=== PATIENT | female | born 1985 | race Caucasian/White ===

== ENCOUNTER 2023-07-14 16:39 | Emergency (ER) | payer BC, SELFPAY ==
[2023-07-14 17:07] VITALS: BP 132/82; PULSE 129; RESP 20; TEMP 39.6; O2SAT 98; BMI 28.5
[2023-07-14 17:26] VITALS: TEMP 39.6
[2023-07-14] MEDS: ACETAMINOPHEN 325 MG TABLET 650 MG PO (17:26)
--- NOTE | 2023-07-14 17:39 | ED_ITS ---
HPI - URI/Sore Throat <Kellie Garcia PA-C - Last Filed: 07/14/23 19:31> General Chief Complaint: Upper Respiratory Symptoms Stated Complaint: Strep throat/temp above 102 Time Seen by Provider: 07/14/23 17:03 Source: patient and family Mode of arrival: Ambulatory History of Present Illness HPI Narrative: 37-year-old female comes for evaluation of severe sore throat. Symptoms started 3 days ago accompanied by fever and minimal cough. She is having trouble swallowing her spit. She has a 2-year-old home and had a new baby 2 months ago. Both her kids are fine at the moment. She denies chest pain shortness of breath abdominal pain. She is otherwise healthy without chronic conditions. She called for a phone visit from her provider and was prescribed amoxicillin 500 mg for which she is taken 1 dose. Related Data Allergies Allergy/AdvReac Type Severity Reaction Status Date / Time No Known Drug Allergies Allergy Verified 07/14/23 17:07 Review of Systems <Kellie Garcia PA-C - Last Filed: 07/14/23 19:31> Review of Systems ROS Unobtainable: All systems reviewed & are unremarkable except as noted in HPI and below Patient History <Kellie Garcia PA-C - Last Filed: 07/14/23 19:31> Social History Smoking Status: Never smoker Smoking Status: Never smoker alcohol intake frequency: holidays/special occasions only Substance Use Type: does not use Exam <Kellie Garcia PA-C - Last Filed: 07/14/23 19:31> Narrative Exam Narrative: GENERAL: 37 year old patient appears stated age. Appears uncomfortable. HEAD: Atraumatic. Normocephalic. EYES: Pupils equal round and reactive. Extraocular motions intact. No scleral icterus. No injection or drainage. ENT: Nose without bleeding, purulent drainage. Throat with moderate erythema, no tonsillar hypertrophy or exudate. TM's pearly bilarterally. NECK: Trachea midline. Non tender, no LAD CARDIOVASCULAR: Regular rate and rhythm without murmurs, gallops, or rubs. RESPIRATORY: Clear to auscultation. Breath sounds equal bilaterally. No wheezes, rales, or rhonchi. GASTROINTESTINAL: Abdomen soft, non-tender, nondistended. NEURO: AOx3. SKIN: No rash or erythema of visible areas Initial Vital Signs Initial Vital Signs: Vital Signs Temperature 103.3 F H 07/14/23 17:07 Pulse Rate 129 H 07/14/23 17:07 Respiratory Rate 20 07/14/23 17:07 Blood Pressure 132/82 07/14/23 17:07 Pulse Oximetry 98 07/14/23 17:07 Oxygen Delivery Method Room Air 07/14/23 17:07 <Olvin Lee DO - Last Filed: 07/14/23 20:33> Initial Vital Signs Initial Vital Signs: Vital Signs Temperature 103.3 F H 07/14/23 17:07 Pulse Rate 129 H 07/14/23 17:07 Respiratory Rate 20 07/14/23 17:07 Blood Pressure 132/82 07/14/23 17:07 Pulse Oximetry 98 07/14/23 17:07 Oxygen Delivery Method Room Air 07/14/23 17:07 <Abbie Rooney MD - Last Filed: 07/16/23 19:44> Initial Vital Signs Initial Vital Signs: Vital Signs Temperature 103.3 F H 07/14/23 17:07 Pulse Rate 129 H 07/14/23 17:07 Respiratory Rate 20 07/14/23 17:07 Blood Pressure 132/82 07/14/23 17:07 Pulse Oximetry 98 07/14/23 17:07 Oxygen Delivery Method Room Air 07/14/23 17:07 Course <Kellie Garcia PA-C - Last Filed: 07/14/23 19:31> Orders Ordered: Discontinued Medications Acetaminophen (Acetaminophen 325 Mg Tablet) 650 mg PO NOW ONE Stop: 07/14/23 17:20 Last Admin: 07/14/23 17:26 Dose: 650 mg Documented By: ES Sodium Chloride (Normal Saline 0.9%) 1,000 mls @ 1,000 mls/hr IV BOLUS ONE Stop: 07/14/23 18:52 Last Admin: 07/14/23 19:22 Dose: 1,000 mls/hr Documented By: ES Lidocaine HCl (Lidocaine Viscous 2% 15 Ml Solution) 15 ml PO NOW ONE Stop: 07/14/23 17:39 Last Admin: 07/14/23 17:52 Dose: 15 ml Documented By: ES Methylprednisolone (Methylprednisolone 125 Mg/2 Ml Vial) 60 mg IV NOW ONE Stop: 07/14/23 17:54 Last Admin: 07/14/23 19:22 Dose: 60 mg Documented By: RICKY Oxycodone/Acetaminophen (Oxycodone/Acetaminophen 5/325 Tablet) 1 tab PO NOW ONE Stop: 07/14/23 17:39 Last Admin: 07/14/23 17:48 Dose: 1 tab Documented By: RICKY Penicillin G Benzathine (Penicillin G Benzathine 1,200,000 Unit/2 Ml Syringe) 1,200,000 unit IM NOW ONE Stop: 07/14/23 20:32 Last Admin: 07/14/23 20:46 Dose: 1,200,000 unit Documented By: GEORGIE Vital Signs Vital signs: Vital Signs - 8 hr 07/14/23 17:07 07/14/23 17:26 07/14/23 19:29 Temperature 103.3 F H 103.3 F H 98 F Pulse Rate 129 H 120 H Respiratory Rate 20 18 Blood Pressure 132/82 121/81 Pulse Oximetry 98 98 Oxygen Delivery Method Room Air Room Air 07/14/23 20:29 Temperature Pulse Rate 118 H Respiratory Rate 18 Blood Pressure 122/88 Pulse Oximetry 98 Oxygen Delivery Method Room Air <Olvin Lee, - Last Filed: 07/14/23 20:33> Orders Ordered: Discontinued Medications Acetaminophen (Acetaminophen 325 Mg Tablet) 650 mg PO NOW ONE Stop: 07/14/23 17:20 Last Admin: 07/14/23 17:26 Dose: 650 mg Documented By: RICKY Sodium Chloride (Normal Saline 0.9%) 1,000 mls @ 1,000 mls/hr IV BOLUS ONE Stop: 07/14/23 18:52 Last Admin: 07/14/23 19:22 Dose: 1,000 mls/hr Documented By: RICKY Lidocaine HCl (Lidocaine Viscous 2% 15 Ml Solution) 15 ml PO NOW ONE Stop: 07/14/23 17:39 Last Admin: 07/14/23 17:52 Dose: 15 ml Documented By: RICKY Methylprednisolone (Methylprednisolone 125 Mg/2 Ml Vial) 60 mg IV NOW ONE Stop: 07/14/23 17:54 Last Admin: 07/14/23 19:22 Dose: 60 mg Documented By: RICKY Oxycodone/Acetaminophen (Oxycodone/Acetaminophen 5/325 Tablet) 1 tab PO NOW ONE Stop: 07/14/23 17:39 Last Admin: 07/14/23 17:48 Dose: 1 tab Documented By: RICKY Penicillin G Benzathine (Penicillin G Benzathine 1,200,000 Unit/2 Ml Syringe) 1,200,000 unit IM NOW ONE Stop: 07/14/23 20:32 Last Admin: 07/14/23 20:46 Dose: 1,200,000 unit Documented By: GEORGIE Vital Signs Vital signs: Vital Signs - 8 hr 07/14/23 17:07 07/14/23 17:26 07/14/23 19:29 Temperature 103.3 F H 103.3 F H 98 F Pulse Rate 129 H 120 H Respiratory Rate 20 18 Blood Pressure 132/82 121/81 Pulse Oximetry 98 98 Oxygen Delivery Method Room Air Room Air 07/14/23 20:29 Temperature Pulse Rate 118 H Respiratory Rate 18 Blood Pressure 122/88 Pulse Oximetry 98 Oxygen Delivery Method Room Air <Abbie Rooney MD - Last Filed: 07/16/23 19:44> Orders Ordered: Discontinued Medications Acetaminophen (Acetaminophen 325 Mg Tablet) 650 mg PO NOW ONE Stop: 07/14/23 17:20 Last Admin: 07/14/23 17:26 Dose: 650 mg Documented By: RICKY Sodium Chloride (Normal Saline 0.9%) 1,000 mls @ 1,000 mls/hr IV BOLUS ONE Stop: 07/14/23 18:52 Last Admin: 07/14/23 19:22 Dose: 1,000 mls/hr Documented By: RICKY Lidocaine HCl (Lidocaine Viscous 2% 15 Ml Solution) 15 ml PO NOW ONE Stop: 07/14/23 17:39 Last Admin: 07/14/23 17:52 Dose: 15 ml Documented By: RICKY Methylprednisolone (Methylprednisolone 125 Mg/2 Ml Vial) 60 mg IV NOW ONE Stop: 07/14/23 17:54 Last Admin: 07/14/23 19:22 Dose: 60 mg Documented By: RICKY Oxycodone/Acetaminophen (Oxycodone/Acetaminophen 5/325 Tablet) 1 tab PO NOW ONE Stop: 07/14/23 17:39 Last Admin: 07/14/23 17:48 Dose: 1 tab Documented By: RICKY Penicillin G Benzathine (Penicillin G Benzathine 1,200,000 Unit/2 Ml Syringe) 1,200,000 unit IM NOW ONE Stop: 07/14/23 20:32 Last Admin: 07/14/23 20:46 Dose: 1,200,000 unit Documented By: GEORGIE Vital Signs Vital signs: Vital Signs - 8 hr 07/14/23 17:07 07/14/23 17:26 07/14/23 19:29 Temperature 103.3 F H 103.3 F H 98 F Pulse Rate 129 H 120 H Respiratory Rate 20 18 Blood Pressure 132/82 121/81 Pulse Oximetry 98 98 Oxygen Delivery Method Room Air Room Air 07/14/23 20:29 Temperature Pulse Rate 118 H Respiratory Rate 18 Blood Pressure 122/88 Pulse Oximetry 98 Oxygen Delivery Method Room Air MDM - URI/Sore Throat <Kellie Garcia PA-C - Last Filed: 07/14/23 19:31> Differential Diagnosis Differential diagnosis: Likely upper respiratory infection, viral infection, influenza, pharyngitis and other (Strep throat, covid) Lab Data Lab results narrative: Throat swab positive for group a strep 07/14/23 18:35 07/14/23 18:35 Labs: Lab Results 07/14/23 07/14/23 Range/Units 17:18 18:35 WBC 15.6 H (4.5-11.0) X10^3/uL RBC 4.23 (4.0-5.2) X10^6/uL Hgb 13.1 (12.0-16.0) g/dL Hct 38.5 (36-46) % MCV 91.2 (80-100) fL MCH 31.0 (26-34) PG MCHC 34.0 (30-36) % RDW 13.5 (11.6-14.8) % Plt Count 206 (150-400) X10^3/uL Neut % (Auto) 86.3 H (50-75) % Lymph % (Auto) 6.0 L (25-40) % [place] % (Auto) 7.1 (3-14) % Eos % (Auto) 0.1 L (2-4) % Baso % (Auto) 0.5 (0-2) % Neut # (Auto) 28187 H (0134-1618) /uL Lymph # (Auto) 900 L (2532-5293) /uL [place] # (Auto) 1100 H (0-900) /uL Eos # (Auto) 0 (0-450) /uL Baso # (Auto) 100 (0-100) /uL Sodium 136 L (137-145) mmol/L Potassium 3.5 (3.4-5.1) mmol/L Chloride 105 (98-107) mmol/L Carbon Dioxide 18 L (22-32) mmol/L BUN 11 (7-17) mg/dL Creatinine 0.69 (0.52-1.04) mg/dL Estimated GFR > 60 (>60) mL/min BUN/Creatinine Ratio 15.9 (6-22) Glucose 107 H (70-100) mg/dL Lactate 0.8 (0.7-2.1) mmol/L Calcium 9.7 (8.4-10.2) mg/dL Total Bilirubin 2.1 H (0.2-1.3) mg/dL AST 60 H (14-36) IU/L ALT 160 H (<35) IU/L Alkaline Phosphatase 153 H (38-126) U/L Total Protein 8.1 (6.3-8.2) g/dL Albumin 4.4 (3.5-5.0) g/dL Globulin 3.7 (1.7-4.1) g/dL Albumin/Globulin Ratio 1.2 (1.0-2.8) Procalcitonin 0.13 (<0.5) ng/mL Group A Strep (PCR) Positive H (Negative) MDM Narrative Medical decision making narrative: History physical and confirmation of strep infection. Has good support and already has a prescription for amoxicillin given to her today by phone consult. Given her high pulse after discussion with we decided it would be prudent to draw some blood and give her some fluid is well as a single 60 mg dose of IV Solu-Medrol. Her WBC is 15.6, lactate 0.8, total bili 2.1, AST 60, ALT 160, alk-phos 153. After 2 hours and pain medication patient was quite comfortable. She will receive 1 L normal saline IV as well. <Olvin Lee DO - Last Filed: 07/14/23 20:33> Lab Data Labs: Lab Results 07/14/23 07/14/23 Range/Units 17:18 18:35 WBC 15.6 H (4.5-11.0) X10^3/uL RBC 4.23 (4.0-5.2) X10^6/uL Hgb 13.1 (12.0-16.0) g/dL Hct 38.5 (36-46) % MCV 91.2 (80-100) fL MCH 31.0 (26-34) PG MCHC 34.0 (30-36) % RDW 13.5 (11.6-14.8) % Plt Count 206 (150-400) X10^3/uL Neut % (Auto) 86.3 H (50-75) % Lymph % (Auto) 6.0 L (25-40) % [place] % (Auto) 7.1 (3-14) % Eos % (Auto) 0.1 L (2-4) % Baso % (Auto) 0.5 (0-2) % Neut # (Auto) 89236 H (4705-0926) /uL Lymph # (Auto) 900 L (4142-0340) /uL [place] # (Auto) 1100 H (0-900) /uL Eos # (Auto) 0 (0-450) /uL Baso # (Auto) 100 (0-100) /uL Sodium 136 L (137-145) mmol/L Potassium 3.5 (3.4-5.1) mmol/L Chloride 105 (98-107) mmol/L Carbon Dioxide 18 L (22-32) mmol/L BUN 11 (7-17) mg/dL Creatinine 0.69 (0.52-1.04) mg/dL Estimated GFR > 60 (>60) mL/min BUN/Creatinine Ratio 15.9 (6-22) Glucose 107 H (70-100) mg/dL Lactate 0.8 (0.7-2.1) mmol/L Calcium 9.7 (8.4-10.2) mg/dL Total Bilirubin 2.1 H (0.2-1.3) mg/dL AST 60 H (14-36) IU/L ALT 160 H (<35) IU/L Alkaline Phosphatase 153 H (38-126) U/L Total Protein 8.1 (6.3-8.2) g/dL Albumin 4.4 (3.5-5.0) g/dL Globulin 3.7 (1.7-4.1) g/dL Albumin/Globulin Ratio 1.2 (1.0-2.8) Procalcitonin 0.13 (<0.5) ng/mL Group A Strep (PCR) Positive H (Negative) MDM Narrative Medical decision making narrative: History physical and confirmation of strep infection. Has good support and already has a prescription for amoxicillin given to her today by phone consult. Given her high pulse after discussion with we decided it would be prudent to draw some blood and give her some fluid is well as a single 60 mg dose of IV Solu-Medrol. Her WBC is 15.6, lactate 0.8, total bili 2.1, AST 60, ALT 160, alk-phos 153. After 2 hours and pain medication patient was quite comfortable. She will receive 1 L normal saline IV as well. Dr Lee: Patient is well-appearing. Tolerating oral intake. Is still slightly tachycardic but I suspect that this is because of her infection. No respiratory distress. She is had 1 dose of amoxicillin. She is strep A positive today. I offered her a Bicillin injection instead of the oral antibiotics which she states she would like to do. She was given that here in the ER. Will discharge patient home with return precautions. She expressed understanding and agreement. <Abbie Rooney MD - Last Filed: 07/16/23 19:44> Lab Data Labs: Lab Results 07/14/23 07/14/23 Range/Units 17:18 18:35 WBC 15.6 H (4.5-11.0) X10^3/uL RBC 4.23 (4.0-5.2) X10^6/uL Hgb 13.1 (12.0-16.0) g/dL Hct 38.5 (36-46) % MCV 91.2 (80-100) fL MCH 31.0 (26-34) PG MCHC 34.0 (30-36) % RDW 13.5 (11.6-14.8) % Plt Count 206 (150-400) X10^3/uL Neut % (Auto) 86.3 H (50-75) % Lymph % (Auto) 6.0 L (25-40) % [place] % (Auto) 7.1 (3-14) % Eos % (Auto) 0.1 L (2-4) % Baso % (Auto) 0.5 (0-2) % Neut # (Auto) 84014 H (7059-3194) /uL Lymph # (Auto) 900 L (1371-5929) /uL [place] # (Auto) 1100 H (0-900) /uL Eos # (Auto) 0 (0-450) /uL Baso # (Auto) 100 (0-100) /uL Sodium 136 L (137-145) mmol/L Potassium 3.5 (3.4-5.1) mmol/L Chloride 105 (98-107) mmol/L Carbon Dioxide 18 L (22-32) mmol/L BUN 11 (7-17) mg/dL Creatinine 0.69 (0.52-1.04) mg/dL Estimated GFR > 60 (>60) mL/min BUN/Creatinine Ratio 15.9 (6-22) Glucose 107 H (70-100) mg/dL Lactate 0.8 (0.7-2.1) mmol/L Calcium 9.7 (8.4-10.2) mg/dL Total Bilirubin 2.1 H (0.2-1.3) mg/dL AST 60 H (14-36) IU/L ALT 160 H (<35) IU/L Alkaline Phosphatase 153 H (38-126) U/L Total Protein 8.1 (6.3-8.2) g/dL Albumin 4.4 (3.5-5.0) g/dL Globulin 3.7 (1.7-4.1) g/dL Albumin/Globulin Ratio 1.2 (1.0-2.8) Procalcitonin 0.13 (<0.5) ng/mL Group A Strep (PCR) Positive H (Negative) Discharge Plan Departure Patient Disposition: Home Clinical Impression: Strep pharyngitis Instructions: DI for Strep Throat Activity Restrictions/Additional Instructions: Because we gave you the shot of antibiotics here in the emergency department you can stop the antibiotics that you have been taking by mouth. You can continue to try other sore throat medication such as Cepacol drops and Chloraseptic sprays. Keep all of your scheduled medical appointments. You can continue to breastfeed like normal. Return to the emergency department for worsening symptoms. Stand Alone Forms: Patient Portal/API ED Sign-out <Abbie Rooney MD - Last Filed: 07/16/23 19:44> Cosign ED Attending Cosignature Attestation: I was immediately available in the department for consultation throughout this patient's visit. Abbie Rooney MD
[2023-07-14 17:40] LABS: Strep Grp A by PCR Rapid Positive (Negative)
[2023-07-14] MEDS: OXYCODONE/ACETAMINOPHEN 5/325 TABLET 1 TAB PO (17:48)
[2023-07-14] MEDS: LIDOCAINE VISCOUS 2% 15 ML SOLUTION PO (17:52)
[2023-07-14 19:09] LABS: Add Manual Diff / Slide Review NO; Alanine Aminotransferase 160 IU/L (<35); Albumin 4.4 g/dL (3.5-5.0); Albumin Globulin Ratio 1.2 (1.0-2.8); Alkaline Phosphatase 153 U/L (38-126); Aspartate Aminotransferase 60 IU/L (14-36); BUN Creatinine Ratio 15.9 (6-22); Basophils Absolute Auto 100 /uL (0-100); Basophils Percent Auto 0.5 % (0-2); Bilirubin Total 2.1 mg/dL (0.2-1.3); Blood Urea Nitrogen 11 mg/dL (7-17); Calcium 9.7 mg/dL (8.4-10.2); Carbon Dioxide 18 mmol/L (22-32); Chloride 105 mmol/L (98-107); Eosinophils Absolute Auto 0 /uL (0-450); Eosinophils Percent Auto 0.1 % (2-4); Estimated Glomerular Filt Rate > 60 mL/min (>60); Globulin 3.7 g/dL (1.7-4.1); Glucose 107 mg/dL (70-100); HEMOLYSIS < 15 (0-50); Hematocrit 38.5 % (36-46); Hemoglobin 13.1 g/dL (12.0-16.0); Lymphocytes Absolute Auto 900 /uL (1100-4500); Mean Corpuscular Volume 91.2 fL (80-100); Monocytes Absolute Auto 1100 /uL (0-900); Monocytes Percent Auto 7.1 % (3-14); Neutrophils Absolute Auto 13500 /uL (1500-7000); Neutrophils Percent Auto 86.3 % (50-75); Platelet Count 206 X10^3/uL (150-400); Potassium 3.5 mmol/L (3.4-5.1); Red Blood Cell Count 4.23 X10^6/uL (4.0-5.2); Red Cell Distribution Width 13.5 % (11.6-14.8); Sodium 136 mmol/L (137-145); Total Protein 8.1 g/dL (6.3-8.2); White Blood Cell Count 15.6 X10^3/uL (4.5-11.0)
[2023-07-14 19:11] LABS: Lactate (Lactic Acid) 0.8 mmol/L (0.7-2.1)
[2023-07-14] MEDS: methylPREDNISolone 125 MG/2 ML VIAL 60 MG IV (19:22)
[2023-07-14] MEDS: SODIUM CHLORIDE 0.9% 1,000 ML 1000 ML IV (19:22)
[2023-07-14 19:25] LABS: Procalcitonin 0.13 ng/mL (<0.5)
[2023-07-14 19:29] VITALS: BP 121/81; PULSE 120; RESP 18; TEMP 36.6; O2SAT 98
[2023-07-14 20:29] VITALS: BP 122/88; PULSE 118; RESP 18; O2SAT 98
[2023-07-14] MEDS: PENICILLIN G BENZATHINE 1,200,000 UNIT/2 ML SYRINGE 1200000 UNIT IM (20:46)
[2023-07-14 20:50] VITALS: TEMP 36.9
== END 2023-07-14 20:51 | disposition home or self-care (01) ==
PROVIDERS: Emergency Medicine; Emergency Provider Physician Assistant
DX: J02.0 Streptococcal pharyngitis (principal); B95.0 Streptococcus, group A, as the cause of diseases classified elsewhere
CPT/HCPCS: 36415; 80053; 83605; 84145; 85025; 87040; 87070; 87651; 96361; 96372; 96374; 99283; 99284; J0561; J2930